=== PATIENT | male | born 1990 | race Caucasian/White ===

== ENCOUNTER 2018-08-23 14:10 | Emergency (ER) | payer SELFPAY ==
[2018-08-23] MEDS ORDERED: LIDOCAINE 2% VISCOUS SOLN 20 ML UDCUP PO ONE (15:26)
[2018-08-23] MEDS ORDERED: MAG HYDROX/AL HYDROX/SIMETH SUSP 30 ML UDCUP PO ONE (15:26)
[2018-08-23] MEDS ORDERED: GLUCAGON,HUMAN RECOMB 1 MG INJ IM ONE (15:27)
[2018-08-23] MEDS ORDERED: METOCLOPRAMIDE HCL ORAL SOLN 10 MG/10 ML UDCUP PO ONE (15:27)
--- NOTE | 2018-08-23 15:28 | ER Document Report ---
HPI - HPI Time Seen by Provider: 08/23/18 15:17 Pain Level: 3 Notes: Patient is an otherwise healthy 27-year-old male presenting with chief complaint of foreign body sensation in his throat. Patient reports that he woke up feeling like there was a scratchiness in his throat. He states he is able to swallow and has been tolerating both food and drink without difficulty. Patient denies any history of similar episodes. Patient denies any chronic medical conditions and all immunizations are up-to-date. - CONSTITUTIONAL Constitutional: DENIES: Fever, Chills - EENT EENT: REPORTS: Sore Throat Past Medical History - General Information source: Patient - Social History Smoking Status: Never Smoker Frequency of alcohol use: None Drug Abuse: None Family History: Reviewed & Not Pertinent Patient has suicidal ideation: No Patient has homicidal ideation: No - Medical History Medical History: Negative - Past Medical History Cardiac Medical History: Denies: Hx Heart Attack, Hx Hypertension Pulmonary Medical History: Denies: Hx Asthma Neurological Medical History: Denies: Hx Cerebrovascular Accident, Hx Seizures Renal/ Medical History: Denies: Hx Peritoneal Dialysis GI Medical History: Denies: Hx Hepatitis, Hx Hiatal Hernia, Hx Ulcer Infectious Medical History: Denies: Hx Hepatitis Surgical Hx: Negative Past Surgical History: Denies: Hx Open Heart Surgery, Hx Pacemaker - Immunizations Immunizations up to date: Yes Vertical Provider Document - CONSTITUTIONAL Notes: PHYSICAL EXAMINATION: GENERAL: Well-appearing, well-nourished and in no acute distress. HEAD: Atraumatic, normocephalic. EYES: Pupils equal round extraocular movements intact, conjunctiva are normal. ENT: Nares patent, no visible abnormality in patient's oropharynx. NECK: Normal range of motion LUNGS: No respiratory distress Musculoskeletal: Normal range of motion NEUROLOGICAL: Normal speech, normal gait. PSYCH: Normal mood, normal affect. SKIN: Warm, Dry, normal turgor, no rashes or lesions noted. - INFECTION CONTROL TRAVEL OUTSIDE OF THE [place] IN LAST 30 DAYS: No Course - Re-evaluation Re-evalutation: Patient is speaking in full and complete sentences and swallowing without difficulty. He denies intake of any hard substances such as chips, meat on bones etc. Patient just states it feels like there is a foreign body in his throat. Patient has already tolerated food and drink. Will treat patient with IM glucagon and give him a GI cocktail and reevaluate. Patient reports his symptoms have improved after administration of medications here in the emergency department. Patient will be discharged home in stable condition, information was given for ENT in case his symptoms return. - Vital Signs Vital signs: Temp Pulse Resp BP Pulse Ox 98.1 F 60 16 134/81 H 98 08/23/18 14:19 08/23/18 14:19 08/23/18 14:19 08/23/18 14:19 08/23/18 14:19 Discharge - Discharge Clinical Impression: Sensation of foreign body in throat Condition: Stable Disposition: HOME, SELF-CARE Additional Instructions: Please continue to eat and drink as per your usual. If you continue having the sensation of a foreign body please call and follow-up with the ear nose and throat doctor. You may want to try some Chloraseptic spray as this may help with the pain. Referrals: ELIAS HAJI, [ASSOCIATE] - Follow up as needed
[2018-08-23 16:21] VITALS: BP 128/75
== END 2018-08-23 16:21 | disposition home or self-care (01) ==
LOC: ER 14:10
DX: R09.89 Other specified symptoms and signs involving the circulatory and respiratory systems (principal); J02.9 Acute pharyngitis, unspecified
CPT/HCPCS: 99282; 96372; J1610; J3490